=== PATIENT | female | born 1995 | race Caucasian/White ===

== ENCOUNTER 2023-03-26 21:49 | Emergency (ER) | payer MEDICAID, SELFPAY ==
[2023-03-26 21:50] VITALS: BP 114/77; PULSE 109; RESP 18; TEMP 37.9; O2SAT 96; BMI 20.2
--- NOTE | 2023-03-26 22:04 | ED_ITS ---
HPI - Back Pain/Injury General: Chief Complaint: Back Pain/Injury Stated Complaint: upper right back pain, kidney hx Time Seen by Provider: 03/26/23 22:00 History of Present Illness: 27-year-old female comes in today with complaints of right flank pain starting yesterday. Patient reports some urinary discomfort for about 1 week. Patient appears in mild discomfort. Patient appears nontoxic. Patient has a history of JABARI secondary to preeclampsia. Review of Systems General: Reports: 10 or more systems reviewed and unremarkable except in HPI and below : Reports: flank pain and difficulty voiding PFS ED PFSH: Medical History (Updated 03/26/23 @ 23:35 by DAMION Hilliard) Insect bites Social History Smoking and tobacco/nicotine status: current every day tobacco/nicotine user Female Reproductive History: Date of last menstrual period: 03/08/23 Physical Exam Const: COMMON NORMALS: alert HENMT: COMMON NORMALS: normocephalic HEAD & SCALP: normocephalic MOUTH: Normal oral and palatal mucosa present Neck/C-Spine: COMMON NORMALS: full ROM Resp: COMMON NORMALS: normal respiratory effort and clear to auscultation bilaterally AUSCULTATION: clear to auscultation bilaterally Cardio: COMMON NORMALS: regular rate and regular rhythm RATE: regular rate RHYTHM: regular rhythm GI: COMMON NORMALS: Soft to palpation PALPATION: Yes Soft to palpation : BLADDER/KIDNEY EXAM: Yes CVA tenderness on the right Back/Pelvis: GENERAL BACK: Yes CVA tenderness Extremity: COMMON NORMALS: full ROM Neuro: SENSORIUM/ORIENTATION: Yes alert Skin: COMMON NORMALS: turgor normal GENERAL SKIN EXAM: turgor normal Course Vital Signs: Vital signs: Vital Signs Temperature 100.2 F H 03/26/23 21:50 Pulse Rate 109 H 03/26/23 21:50 Respiratory Rate 16 03/26/23 22:49 Blood Pressure 114/77 03/26/23 21:50 Pulse Oximetry 100 03/26/23 22:49 Oxygen Delivery Me thod Room Air 03/26/23 21:50 MDM - Back Pain/Injury Medical Decision Making 27-year-old female comes in today for complaints of right flank pain and urinary difficulty. Patient reports symptoms started last week with flank pain starting yesterday. Patient appears nontoxic. Patient appears in mild to moderate pain. Vital signs are normal except for some mild elevation in temperature and pulse. Differential diagnosis includes gallbladder disease, pancreatitis, renal calculi, acute pyelonephritis. CBC had a elevated white blood cells of 12.6, CMP showed sodium 135 and potassium 3.4, urinalysis had a increased number of white blood cells. Believe the patient probably has urinary tract infection with some mild pyelonephritis. Patient be continued on cephalexin 500 mg 3 times a day for 7 days. Patient was given 1 g of Rocephin in the emergency department. Reviewed recommendations for follow-up or return to the ER. Patient reported understanding. Labs 03/26/23 22:38 03/26/23 22:38 Laboratory Results WBC 12.61 10^3/uL (3.29-11.43) H 03/26/23 22:38 RBC 3.79 10^6/uL (3.85-5.65) L 03/26/23 22:38 Hgb 10.50 g/dL (11.27-16.99) L 03/26/23 22:38 Hct 32.8 % (36-47) L 03/26/23 22:38 MCV 86.5 fl (85-98) 03/26/23 22:38 MCH 27.7 pg (27-33) 03/26/23 22:38 MCHC 32.0 g/dL (30-55) 03/26/23 22:38 RDW 14.7 % (12.1-15.1) 03/26/23 22:38 Plt Count 302 10^3/cmm (157-399) 03/26/23 22:38 MPV 8.1 fL (7.4-10.4) 03/26/23 22:38 Neut % (Auto) 64.5 % 03/26/23 22:38 Lymph % (Auto) 21.6 % 03/26/23 22:38 [place] % (Auto) 12.5 % 03/26/23 22:38 Eos % (Auto) 0.7 % 03/26/23 22: Baso % (Auto) 0.2 % 03/26/23 22:38 Neut # (Auto) 8.13 10^3/uL (1.8-7.7) H 03/26/23 22:38 Lymph # (Auto) 2.7 10^3/uL (0.8-4.8) 03/26/23 22:38 [place] # (Auto) 1.6 10^3/uL (0.2-0.9) H 03/26/23 22:38 Eos # (Auto) 0.1 10^3/uL (0.0-0.8) 03/26/23 22:38 Baso # (Auto) 0.0 10^3/uL (0.0-0.1) 03/26/23 22:38 Nucleated RBC % (auto) 0 % 03/26/23 22:38 Nucleated RBCs # 0.0 /100WBC 03/26/23 22:38 Sodium 135 mmol/L (136-145) L 03/26/23 22:38 Potassium 3.4 mmol/L (3.5-5.1) L 03/26/23 22:38 Chloride 100 mmol/L (98-107) 03/26/23 22:38 Carbon Dioxide 24 mmol/L (22-29) 03/26/23 22:38 Anion Gap 14.4 (5-19) 03/26/23 22:38 BUN 7 mg/dL (6-20) 03/26/23 22:38 Creatinine 0.6 mg/dL (0.5-0.9) 03/26/23 22:38 GFR Calculation 118.2 mL/min (90-130) 03/26/23 22:38 Glucose 125 mg/dL (65-115) H 03/26/23 22:38 Calculated Osmolality 279 mOsm/kg (285-295) L 03/26/23 22:38 Calcium 8.7 mg/dL (8.5-10.5) 03/26/23 22:38 Total Bilirubin 0.3 mg/dL (0.15-1.2) 03/26/23 22:38 AST 20 U/L (0-32) 03/26/23 22:38 ALT 9 U/L (0-33) 03/26/23 22:38 Alkaline Phosphatase 66 U/L (35-105) 03/26/23 22:38 Total Protein 7.2 g/dL (6.6-8.7) 03/26/23 22:38 Albumin 4.2 g/dL (3.5-5.2) 03/26/23 22:38 Globulin 3.0 g/dL (1.3-4.6) 03/26/23 22:38 HCG, Qual Negative (Negative) 03/26/23 22:36 Urine Color Yellow (Yellow) 03/26/23 22:36 Urine Appearance Clear (CLEAR) 03/26/23 22:36 Urine pH 8 (5-7) H 03/26/23 22:36 Ur Specific [place] 1.005 (1.005-1.030) 03/26/23 22:36 Urine Protein Neg (Negative) 03/26/23 22:36 Urine Glucose (UA) Norm (Normal) 03/26/23 22:36 Urine Ketones Negative (Negative) 03/26/23 22:36 Urine Blood 2+ (Negative) H 03/26/23 22:36 Urine Nitrate Negative (Negative) 03/26/23 22:36 Urine Bilirubin Neg (Negative) 03/26/23 22:36 Prot Sulfosalicylic Acd Negative (Negative) 03/26/23 22:36 Urine Urobilinogen 1 mg/dL (Negative) H 03/26/23 22:36 Ur Leukocyte Esterase Negative (Negative) 03/26/23 22:36 Urine RBC 0-4 /hpf (0-2) H 03/26/23 22:36 Urine WBC 25-40 /hpf (0-5) H 03/26/23 22:36 Ur Squamous Epith Cells 0-4 /hpf (0-5) H 03/26/23 22:36 Amorphous Sediment Not Reportable 03/26/23 22:36 Urine Bacteria 2+ /hpf (NONE) H 03/26/23 22:36 All radiology interpretation(s) finalized by discharge Discharge Plan Discharge Patient Disposition: Home Clinical Impression: Pyelonephritis Condition: Stable Prescriptions: New cephalexin 500 mg capsule 500 mg PO Q8H 7 Days Qty: 21 0RF No Action loratadine 10 mg tablet 10 mg PO DAILY PRN (Reason: itching) Qty: 30 0RF Discharge Orders: Discharge ED (Routine); Ordered 03/26/23 Ordered By: Gregorio Muhammad Referrals: Jai Cruz MD [Family Provider] - Discharge Diet: Usual diet Discharge Activity: Increase activity as tolerated Patient Instructions: Kidney Infection (ED) Activity Restrictions/Additional Instructions: Drink plenty of water and fluids. Take antibiotic as directed. Follow-up with primary care for further instructions. Return to ED for new concerns. Coding Level of Care Code ED Manager Business Banking for Chuck Apodaca
[2023-03-26 22:45] LABS: Basophils % 0.2 %; Eosinophils # 0.1 10^3/uL (0.0-0.8); Eosinophils % 0.7 %; Hematocrit 32.8 % (36-47); Lymphocytes # 2.7 10^3/uL (0.8-4.8); Lymphocytes % 21.6 %; Mean Corpuscular Hemoglobin 27.7 pg (27-33); Mean Corpuscular Volume 86.5 fl (85-98); Mean Platelet Volume 8.1 fL (7.4-10.4); Monocytes # 1.6 10^3/uL (0.2-0.9); Monocytes % 12.5 %; Neutrophils # 8.13 10^3/uL (1.8-7.7); Neutrophils % 64.5 %; Nucleated Red Blood Cells % 0 %; Platelet Count 302 10^3/cmm (157-399); Red Blood Count 3.79 10^6/uL (3.85-5.65); Red Cell Distribution Width 14.7 % (12.1-15.1); White Blood Count 12.61 10^3/uL (3.29-11.43)
[2023-03-26] MEDS: sodium chloride 0.9% 500 ML 999 ML IV (22:46)
[2023-03-26] MEDS: ketorolac 30 mg/mL INJ 15 MG IVP (22:48)
[2023-03-26 22:49] VITALS: RESP 16; O2SAT 100
[2023-03-26] MEDS: fentaNYL 50 mcg/mL INJ 2mL 25 MCG IVP (22:49)
[2023-03-26 22:54] LABS: HCG Qualitative Urine. Negative (Negative)
[2023-03-26 23:08] LABS: Alanine Aminotransferase 9 U/L (0-33); Albumin Level 4.2 g/dL (3.5-5.2); Alkaline Phosphatase 66 U/L (35-105); Anion Gap 14.4 (5-19); Aspartate Amino Transferase 20 U/L (0-32); Blood Urea Nitrogen 7 mg/dL (6-20); Calcium 8.7 mg/dL (8.5-10.5); Carbon Dioxide 24 mmol/L (22-29); Chloride 100 mmol/L (98-107); Creatinine Clr Calc Pharmacy 105.0378; Glomerular Filtration Rate 118.2 mL/min (90-130); Glucose 125 mg/dL (65-115); Osmolality Calculated 279 mOsm/kg (285-295); Potassium 3.4 mmol/L (3.5-5.1); Sodium 135 mmol/L (136-145); Total Bilirubin 0.3 mg/dL (0.15-1.2); Total Protein 7.2 g/dL (6.6-8.7)
[2023-03-26 23:32] LABS: Add Urine Microscopic? YES; Bacteria Urine 2+ /hpf; Bilirubin Urine Neg (Negative); Blood Urine 2+ (Negative); Glucose Urine UA Norm (Normal); Ketones Urine Negative (Negative); Leukocyte Esterase Urine Negative (Negative); Nitrate Urine Negative (Negative); Protein Urine Neg (Negative); RBC Urine 0-4 /hpf (0-2); Specific Gravity, Urine 1.005 (1.005-1.030); Squamous Epithelial Cell Urine 0-4 /hpf (0-5); Sulfosalicylic Acid Urine Negative (Negative); Urine Appearance Clear (CLEAR); Urine Color Yellow (Yellow); Urobilinogen Urine 1 mg/dL (Negative); WBC Urine 25-40 /hpf (0-5); pH Urine 8 (5-7)
[2023-03-26 23:33] LABS: Add Urine Culture? Yes
[2023-03-26 23:57] VITALS: PULSE 100; RESP 18; O2SAT 98
[2023-03-27 00:06] VITALS: BP 102/70; PULSE 95; O2SAT 99
== END 2023-03-27 00:07 | disposition home or self-care (01) ==
PROVIDERS: Emergency Provider Nurse Practitioner Family; Family Provider Family Medicine
DX: N12 Tubulo-interstitial nephritis, not specified as acute or chronic (principal); Z72.0 Tobacco use
CPT/HCPCS: 80053; 81001; 81025; 85025; 87077; 87086; 87186; 96365; 96375; 99284; J1885; J3010; J7040

== ENCOUNTER 2023-05-26 21:20 | Emergency (ER) | payer MEDICAID, SELFPAY ==
[2023-05-26 21:22] VITALS: BP 127/76; PULSE 121; RESP 20; TEMP 37.1; O2SAT 100; BMI 19.1
[2023-05-26 21:38] LABS: Basophils % 0.6 %; Eosinophils # 0.1 10^3/uL (0.0-0.8); Eosinophils % 2.2 %; Hematocrit 35.9 % (36-47); Lymphocytes # 2.3 10^3/uL (0.8-4.8); Lymphocytes % 36.5 %; Mean Corpuscular HGB Conc 30.1 g/dL (30-55); Mean Corpuscular Hemoglobin 26.1 pg (27-33); Mean Corpuscular Volume 86.7 fl (85-98); Mean Platelet Volume 7.9 fL (7.4-10.4); Monocytes # 0.5 10^3/uL (0.2-0.9); Monocytes % 8.7 %; Neutrophils # 3.22 10^3/uL (1.8-7.7); Neutrophils % 51.7 %; Nucleated Red Blood Cells % 0 %; Platelet Count 313 10^3/cmm (157-399); Red Blood Count 4.14 10^6/uL (3.85-5.65); White Blood Count 6.24 10^3/uL (3.29-11.43)
--- NOTE | 2023-05-26 21:42 | ED.C_ITS ---
HPI - Psych 2 General: Chief Complaint: Psychiatric Symptoms Stated Complaint: SI Time Seen by Provider: 05/26/23 21:22 Source: patient, EMS and police Mode of arrival: EMS Limitations: no limitations History of Present Illness: 28-year-old female states that she had b een drinking tonight she got into an argument with her brother he kept saying she is a full [employer] hands and she became upset she states that she grabbed a knife and stated she was going to cut herself trying to get him away from her. She states that she was never suicidal she adamantly denies being suicidal currently. Review of Systems 2 Const: Denies: fever(s), chills, body aches or change in appetite ENMT: Denies: throat pain or dental pain Card: Denies: chest pain Resp: Denies: dyspnea GI: Denies: abdominal pain, nausea, vomiting or diarrhea Musc: Denies: neck pain or back pain Skin/Breast: Denies: rash Neuro: Denies: headache(s) PFSH ED 2 PFSH: Medical History Moderate major depression Borderline personality disorder Bipolar disorder Pyelonephritis Epilepsy delivery delivered Surgical History Hx of section History of salpingectomy Family History (Updated 04/12/23 @ 13:20 by Kim Mina) Sister Autism Stroke Mother Cancer Seizure disorder Grandmother Chronic kidney disease (CKD) Diabetes mellitus type 1 Diabetes mellitus, type 2 Other Depression Diabetes Schizophrenia Social History Smoking and tobacco/nicotine status: current every day tobacco/nicotine user Alcohol intake: current Alcohol intake frequency: other Substance/Drug Use: current Substance/Drug use frequency: daily Physical Exam 2 Const: COMMON NORMALS: no acute distress, patient oriented x3 and healthy appearing HENMT: COMMON NORMALS: normocephalic and atraumatic HEAD & SCALP: n ormocephalic and atraumatic Neck/C-Spine: COMMON NORMALS: full ROM and supple Chest: COMMONS NORMALS: normal inspection of the chest Resp: COMMON NORMALS: normal respiratory effort Cardio: COMMON NORMALS: regular rhythm and No murmurs present (Cardio) R ATE: tachycardic RHYTHM: regular rhythm Extremity: COMMON NORMALS: normal to inspection and full ROM Neuro: COMMON NORMALS: patient oriented x3, moves all extremities and no focal motor deficits Psych: COMMON NORMALS: mental status grossly normal, Normal thought process present and cooperative THOUGHT PROCESS: Normal thought process present Skin: COMMON NORMALS: no rashes or lesions noted and no wounds GENERAL SKIN EXAM: no rashes or lesions noted Course 2 Vital Signs: Vital signs: Vital Signs Temperature 98.7 F 05/26/23 21: Pulse Rate 121 H 05/26/23 21:22 Respiratory Rate 20 H 05/26/23 21:22 Blood Pressure 127/76 05/26/23 21: Pulse Oximetry 100 05/26/23 21:22 MDM - Psych Medical Decision Making Patient presents here with anger outburst where she grabbed a knife and said she had herself I believe she was just trying to get her brother away from her she has no signs of SI or HI patient was evaluated by psychiatrist Dr. Maza who agrees patient is stable for discharge follow-up PCP return if worsening. Medical Records I reviewed the patient's medical records. Lab Data I reviewed the patient's lab results. 05/26/23 21:33 05/26/23 21:33 Laboratory Results WBC 6.24 10^3/uL (3.29-11.43) 05/26/23 21: RBC 4.14 10^6/uL (3.85-5.65) 05/26/23 21:33 Hgb 10.80 g/dL (11.27-16.99) L 05/26/23 21: Hct 35.9 % (36-47) L 05/26/23 21:33 MCV 86.7 fl (85-98) 05/26/23 21: MCH 26.1 pg (27-33) L 05/26/23 21: MCHC 30.1 g/dL (30-55) 05/26/23 21: RDW 15.0 % (12.1-15.1) 05/26/23 21:33 Plt Count 313 10^3/cmm (157-399) 05/26/23 21: MPV 7.9 fL (7.4-10.4) 05/26/23 21:33 Neut % (Auto) 51.7 % 05/26/23 21:33 Lymph % (Auto) 36.5 % 05/26/23 21:33 [place] % (Auto) 8.7 % 05/26/23 21:33 Eos % (Auto) 2.2 % 05/26/23 21:33 Baso % (Auto) 0.6 % 05/26/23 21:33 Neut # (Auto) 3.22 10^3/uL (1.8-7.7) 05/26/23 21: Lymph # (Auto) 2.3 10^3/uL (0.8-4.8) 05/26/23 21:33 [place] # (Auto) 0.5 10^3/uL (0.2-0.9) 05/26/23 21: Eos # (Auto) 0.1 10^3/uL (0.0-0.8) 05/26/23 21: Baso # (Auto) 0.0 10^3/uL (0.0-0.1) 05/26/23 21: Nucleated RBC % (auto) 0 % 05/26/23 21: Nucleated RBCs # 0.0 /100WBC 05/26/23 21:33 Sodium 141 mmol/L (136-145) 05/26/23 21:33 Potassium 3.9 mmol/L (3.5-5.1) 05/26/23 21: Chloride 107 mmol/L (98-107) 05/26/23 21: Carbon Dioxide 20 mmol/L (22-29) L 05/26/23 21:33 Anion Gap 17.9 (5-19) 05/26/23 21:33 BUN 6 mg/dL (6-20) 05/26/23 21:33 Creatinine 0.7 mg/dL (0.5-0.9) 05/26/23 21:33 GFR Calculation 98.3 mL/min (90-130) 05/26/23 21:33 Glucose 135 mg/dL (65-115) H 05/26/23 21:33 Calculated Osmolality 292 mOsm/kg (285-295) 05/26/23 21:33 Calcium 9.3 mg/dL (8.5-10.5) 05/26/23 21:33 Total Bilirubin 0.2 mg/dL (0.15-1.2) 05/26/23 21:33 AST 21 U/L (0-32) 05/26/23 21:33 ALT 14 U/L (0-33) 05/26/23 21:33 Alkaline Phosphatase 61 U/L (35-105) 05/26/23 21:33 Total Protein 7.2 g/dL (6.6-8.7) 05/26/23 21:33 Albumin 4.6 g/dL (3.5-5.2) 05/26/23 21:33 Globulin 2.6 g/dL (1.3-4.6) 05/26/23 21:33 Salicylates < 0.3 mg/dL (3-10) L 05/26/23 21:33 Acetaminophen < 5.0 ug/mL (10-30) L 05/26/23 21:33 Ethyl Alcohol 140 mg/dL (0-10) H 05/26/23 21:33 No radiology studies performed this visit Discharge Plan Discharge Patient Disposition: Home Clinical Impression: Behavior problems Condition: Stable Prescriptions: No Action ciprofloxacin HCl 500 mg tablet 500 mg PO BID 7 Days Qty: 14 0RF Discharge Orders: Discharge ED (Routine); Ordered 05/26/23 Ordered By: Tameka Boudreaux Discharge Diet: Advance as tolerated Discharge Activity: Resume usual activity Patient Instructions: Depression (ED) Coding Level of Care Code ED Forming Yardage Control Operator for Chuck Apodaca
[2023-05-26 21:57] LABS: Alanine Aminotransferase 14 U/L (0-33); Albumin Level 4.6 g/dL (3.5-5.2); Alcohol Level 140 mg/dL (0-10); Alkaline Phosphatase 61 U/L (35-105); Anion Gap 17.9 (5-19); Aspartate Amino Transferase 21 U/L (0-32); Blood Urea Nitrogen 6 mg/dL (6-20); Calcium 9.3 mg/dL (8.5-10.5); Carbon Dioxide 20 mmol/L (22-29); Chloride 107 mmol/L (98-107); Globulin 2.6 g/dL (1.3-4.6); Glomerular Filtration Rate 98.3 mL/min (90-130); Glucose 135 mg/dL (65-115); Osmolality Calculated 292 mOsm/kg (285-295); Potassium 3.9 mmol/L (3.5-5.1); Sodium 141 mmol/L (136-145); Total Bilirubin 0.2 mg/dL (0.15-1.2); Total Protein 7.2 g/dL (6.6-8.7)
[2023-05-26 22:00] LABS: Acetaminophen < 5.0 ug/mL (10-30); Salicylate < 0.3 mg/dL (3-10)
--- NOTE | 2023-05-26 22:59 | PC.NURSE ---
after speaking with psychologist patient discharged home. Pt. continues to deny SI/HI
== END 2023-05-26 23:02 | disposition home or self-care (01) ==
PROVIDERS: Emergency Provider Emergency Medicine
DX: R46.89 Other symptoms and signs involving appearance and behavior (principal); Z72.0 Tobacco use
CPT/HCPCS: 36415; 80053; 80307; 85025; 99283

== ENCOUNTER 2023-07-19 23:28 | Emergency (ER) | payer MEDICAID, SELFPAY ==
[2023-07-19 23:35] VITALS: BP 140/87; PULSE 76; RESP 16; TEMP 36.6; O2SAT 99; BMI 20.4
--- NOTE | 2023-07-19 23:39 | W.ED.ABDPA2 ---
HPI - Abdominal Pain General: Chief Complaint: Abdominal Pain Stated Complaint: back pain, believes uti Time Seen by Provider: 07/19/23 23:33 History of Present Illness: 28-year-old female presents to the emergency department complaints of right flank and right lower quadrant abdominal pain for the previous 1 month. She states she has a history of recurrent urinary tract infections and is concerned that this may be another urinary tract infection. She states she has had a bilateral salpingo-oophorectomy in the past. She also states she has had acute renal failure secondary to preeclampsia with her last child. She states she does not have a primary care provider. She states she did have an episode of nausea and vomiting earlier today. She states her pain currently is a sharp constant stabbing pain that is a 10 out of 10. She states that nothing seems to make it better nothing makes it worse. She denies fever chills or night sweats. She denies gross hematuria. Associated Symptoms: Reports nausea and vomiting Review of Systems General: Reports: 10 or more systems reviewed and unremarkable except in HPI and below GI: Reports: abdominal pain, nausea and vomiting Musc: Reports: other (Right flank pain) [facility] ED PFSH: Medical History Moderate major depression Borderline personality disorder Bipolar disorder Pyelonephritis Epilepsy delivery delivered Surgical History Hx of section History of salpingectomy Family History (Updated 04/12/23 @ 13:20 by Kim Mina) Sister Autism Stroke Mother Cancer Seizure disorder Grandmother Chronic kidney disease (CKD) Diabetes mellitus type 1 Diabetes mellitus, type 2 Other Depression Diabetes Schizophrenia Social History Smoking and tobacco/nicotine status: current every day tobacco/nicotine user Alcohol intake: current Alcohol intake frequency: other Substance/Drug Use: current Substance/Drug use frequency: daily Physical Exam Narrative: EXAM NARRATIVE: Constitutional: the patient appears well nourished and of normal development. Vital signs as documented. No acute distress at present. Alert and oriented-to person, place, time and situation. Head, eyes, ears, nose, mouth, throat: Normocephalic, atraumatic. Pupils-equal, round, reactive to light. No scleral icterus. Normal-appearing external ears. Normal appearing nasal turbinates, no drainage. Neck: Supple, trachea is midline, no lymphadenopathy, no jugular venous distension. No meningeal signs. Lungs: clear to auscultation to all lung [place]. Symmetrical rise and fall of chest, no obvious signs of increased work of breathing at present. Cardiac: Regular rate and rhythm, positive S1, S2. No murmurs, rubs or gallops that I can appreciate Abdomen: Soft, non-tender to palpation, normal active bowel sounds to all quadrants. No palpable masses, no organomegaly and abdominal bruits. Back: Positive right CVA tenderness, normal alignment, no palpable step-offs no obvious deformity. Extremities: 2+ pulses in the upper extremities that are equal bilaterally, 2+ pulses in the lower extremities that are equal bilaterally. Non-edematous. Moves all extremities well, sensation to all extremities are noted. Skin: Warm, dry, intact. Course Vital Signs: Vital signs: Vital Signs Temperature 97.9 F 07/19/23 23:35 Pulse Rate 67 07/20/23 01:00 Respiratory Rate 16 07/20/23 01:00 Blood Pressure 98/53 07/20/23 01:00 Pulse Oximetry 100 07/20/23 01:00 MDM - Abdominal Pain Medical Decision Making Physical exam completed document I will obtain CBC and CMP as well as urinalysis to evaluate for urinary tract infection, pyelonephritis, renal calculi. Medical Records I reviewed the patient's medical records. Lab Data I reviewed the patient's lab results. 07/19/23 23:36 07/19/23 23:36 Labs/Radiology: Radiology Impressions Abdomen/Pelvis CT 07/20/23 00:09 IMPRESSION: 1. Prominent fluid in the small bowel without dilation may reflect an enteritis. 2. Left ovary 18 mm cyst, likely follicular. 3. Small amount of nonspecific fluid in the pelvis. 4. Small umbilical hernia. 5. Fluid in the uterine cavity likely related to menstrual status. Laboratory Results WBC 6.82 10^3/uL (3.29-11.43) 07/19/23 23:36 RBC 4.45 10^6/uL (3.85-5.65) 07/19/23 23:36 Hgb 11.00 g/dL (11.27-16.99) L 07/19/23 23:36 Hct 36.8 % (36-47) 07/19/23 23:36 MCV 82.7 fl (85-98) L 07/19/23 23:36 MCH 24.7 pg (27-33) L 07/19/23 23:36 MCHC 29.9 g/dL (30-55) L 07/19/23 23:36 RDW 14.7 % (12.1-15.1) 07/19/23 23:36 Plt Count 350 10^3/cmm (157-399) 07/19/23 23:36 MPV 8.1 fL (7.4-10.4) 07/19/23 23:36 Neut % (Auto) 52.4 % 07/19/23 23:36 Lymph % (Auto) 34.9 % 07/19/23 23:36 [place] % (Auto) 7.9 % 07/19/23 23:36 Eos % (Auto) 3.8 % 07/19/23 23:36 Baso % (Auto) 0.9 % 07/19/23 23:36 Neut # (Auto) 3.57 10^3/uL (1.8-7.7) 07/19/23 23:36 Lymph # (Auto) 2.4 10^3/uL (0.8-4.8) 07/19/23 23:36 [place] # (Auto) 0.5 10^3/uL (0.2-0.9) 07/19/23 23:36 Eos # (Auto) 0.3 10^3/uL (0.0-0.8) 07/19/23 23:36 Baso # (Auto) 0.1 10^3/uL (0.0-0.1) 07/19/23 23:36 Nucleated RBC % (auto) 0 % 07/19/23:36 Nucleated RBCs # 0.0 /100WBC 07/19/23 23:36 Sodium 139 mmol/L (136-145) 07/19/23 23:36 Potassium 4.2 mmol/L (3.5-5.1) 07/19/23 23:36 Chloride 102 mmol/L (98-107) 07/19/23 23:36 Carbon Dioxide 26 mmol/L (22-29) 07/19/23 23:36 Anion Gap 15.2 (5-19) 07/19/23 23:36 BUN 6 mg/dL (6-20) 07/19/23 23:36 Creatinine 0.9 mg/dL (0.5-0.9) 07/19/23 23:36 GFR Calculation 73.5 mL/min (90-130) L 07/19/23 23:36 Glucose 101 mg/dL (65-115) 07/19/23 23:36 Calculated Osmolality 286 mOsm/kg (285-295) 07/19/23 23:36 Calcium 9.1 mg/dL (8.5-10.5) 07/19/23 23:36 Total Bilirubin 0.4 mg/dL (0.15-1.2) 07/19/23 23:36 AST 21 U/L (0-32) 07/19/23 23:36 ALT 12 U/L (0-33) 07/19/23 23:36 Alkaline Phosphatase 61 U/L (35-105) 07/19/23 23:36 Total Protein 7.8 g/dL (6.6-8.7) 07/19/23 23:36 Albumin 4.8 g/dL (3.5-5.2) 07/19/23 23:36 Globulin 3.0 g/dL (1.3-4.6) 07/19/23 23:36 HCG, Qual Negative (Negative) 07/19/23 23:36 Urine Color Yellow (Yellow) 07/19/23 23:36 Urine Appearance Sl hazy (CLEAR) A 07/19/23 23:36 Urine pH 8 (5-7) H 07/19/23 23:36 Ur Specific [place] 1.010 (1.005-1.030) 07/19/23 23:36 Urine Protein Neg (Negative) 07/19/23 23:36 Urine Glucose (UA) Norm (Normal) 07/19/23 23:36 Urine Ketones Negative (Negative) 07/19/23 23:36 Urine Blood Neg (Negative) 07/19/23 23:36 Urine Nitrate Negative (Negative) 07/19/23 23:36 Urine Bilirubin Neg (Negative) 07/19/23 23:36 Prot Sulfosalicylic Acd Negative (Negative) 07/19/23 23:36 Urine Urobilinogen Neg mg/dL (Negative) 07/19/23 23:36 Ur Leukocyte Esterase Trace (Negative) H 07/19/23 23:36 Urine RBC None /hpf (0-2) 07/19/23 23:36 Urine WBC 0-4 /hpf (0-5) H 07/19/23 23:36 Ur Squamous Epith Cells 0-4 /hpf (0-5) H 07/19/23 23:36 Amorphous Sediment Not Reportable 07/19/23 23:36 Urine Bacteria None /hpf (NONE) 07/19/23 23:36 All radiology interpretation(s) finalized by discharge Discharge Plan Discharge Patient Disposition: Home Clinical Impression: Abdominal wall pain in right flank UTI (urinary tract infection) Qualifiers: Urinary tract infection type: acute cystitis Hematuria presence: without hematuria Qualified Code(s): N30.00 - Acute cystitis without hematuria Condition: Stable Prescriptions: New Macrobid 100 mg capsule 100 mg PO Q12H 7 Days Qty: 14 0RF Rx Instructions: must administer with a meal/food ibuprofen 800 mg tablet 800 mg PO TID PRN (Reason: pain) Qty: 30 0RF No Action ciprofloxacin HCl 500 mg tablet 500 mg PO BID 7 Days Qty: 14 0RF Discharge Orders: Discharge ED (Routine); Ordered 07/20/23 Ordered By: Mark Leon Discharge Diet: Usual diet Discharge Activity: Resume usual activity Patient Instructions: Abdominal Pain (ED), Opioid Safety, Pain Management Activity Restrictions/Additional Instructions: Activity Restrictions/Additional Instructions: Thank you for choosing [facility] for your healthcare needs today. Please realize that you were seen in the Emergency Department and that we are providing you with an emergency medical screening exam and this may not be a complete and all inclusive of all the testing and or medical work-up that you may need to determine your ailment or severity of your illness. It is very important that you follow-up as instructed with your Primary care provider or Specialist for additional evaluation and to discuss your medical treatment plan. You may return to the Emergency Department should you have concerns or if your condition changes or worsens in any way. Coding Level of Care Code ED Tacking Machine Operator for Chuck Apodaca
[2023-07-19 23:42] VITALS: BP 106/71; PULSE 80; O2SAT 100
[2023-07-19] MEDS: ondansetron 2 mg/ML SDV 2 mL 4 MG IVP (23:47)
[2023-07-19] MEDS: ketorolac 30 mg/mL INJ IVP (23:47)
[2023-07-19 23:50] LABS: Basophils # 0.1 10^3/uL (0.0-0.1); Basophils % 0.9 %; Eosinophils # 0.3 10^3/uL (0.0-0.8); Eosinophils % 3.8 %; Hematocrit 36.8 % (36-47); Lymphocytes # 2.4 10^3/uL (0.8-4.8); Lymphocytes % 34.9 %; Mean Corpuscular HGB Conc 29.9 g/dL (30-55); Mean Corpuscular Hemoglobin 24.7 pg (27-33); Mean Corpuscular Volume 82.7 fl (85-98); Mean Platelet Volume 8.1 fL (7.4-10.4); Monocytes # 0.5 10^3/uL (0.2-0.9); Monocytes % 7.9 %; Neutrophils # 3.57 10^3/uL (1.8-7.7); Neutrophils % 52.4 %; Nucleated Red Blood Cells % 0 %; Platelet Count 350 10^3/cmm (157-399); Red Blood Count 4.45 10^6/uL (3.85-5.65); Red Cell Distribution Width 14.7 % (12.1-15.1); White Blood Count 6.82 10^3/uL (3.29-11.43)
[2023-07-20 00:04] LABS: Add Urine Microscopic? YES; Bilirubin Urine Neg (Negative); Blood Urine Neg (Negative); Glucose Urine UA Norm (Normal); Ketones Urine Negative (Negative); Leukocyte Esterase Urine Trace (Negative); Nitrate Urine Negative (Negative); Protein Urine Neg (Negative); Sulfosalicylic Acid Urine Negative (Negative); Urine Appearance SL Hazy (CLEAR); Urine Color Yellow (Yellow); Urobilinogen Urine Neg (Negative); pH Urine 8 (5-7)
[2023-07-20 00:05] LABS: Add Urine Culture? No; Squamous Epithelial Cell Urine 0-4 /hpf (0-5); WBC Urine 0-4 /hpf (0-5)
[2023-07-20 00:07] LABS: HCG Qualitative Urine. Negative (Negative)
[2023-07-20 00:08] VITALS: PULSE 78; O2SAT 99
--- NOTE | 2023-07-20 00:09 | CTR_ITS ---
PROCEDURE INFORMATION: Exam: CT Abdomen And Pelvis With Contrast Exam date and time: 07/20/2023 12:34 AM Age: 28 years old Clinical indication: Abdominal pain; Localized; Right upper quadrant (ruq); Prior surgery; Surgery date: 6+ months; Surgery type: Cestion/tubal; Additional info: Right flank pain TECHNIQUE: Imaging protocol: Computed tomography of the abdomen and pelvis with contrast. Radiation optimization: All CT scans at this facility use at least one of these dose optimization techniques: automated exposure control; mA and/or kV adjustment per patient size (includes targeted exams where dose is matched to clinical indication); or iterative reconstruction. Contrast material: OMNI 350; Contrast volume: 100 ml; Contrast route: INTRAVENOUS (IV); COMPARISON: [place] [id number] 07/29/2016 9:53 AM RADIATION DOSE METRICS: Total DLP (mGy-cm): 320.1 FINDINGS: Liver: Normal. No mass. Gallbladder and bile ducts: Normal. No calcified stones. No ductal dilation. Pancreas: Normal. No ductal dilation. Spleen: Normal. No splenomegaly. Adrenal glands: Normal. No mass. Kidneys and ureters: Normal. No hydronephrosis. Stomach and bowel: Prominent fluid in the small bowel without dilation may reflect an enteritis. Appendix: No evidence of appendicitis. Intraperitoneal space: Small amount of nonspecific fluid in the pelvis. Vasculature: Unremarkable. No abdominal aortic aneurysm. Lymph nodes: Unremarkable. No enlarged lymph nodes. Urinary bladder: Unremarkable as visualized. Reproductive: Fluid in the uterine cavity likely related to menstrual status. Left ovary 18 mm cyst, likely follicular. Bones/joints: Unremarkable. No acute fracture. Soft tissues: Small umbilical hernia. Other findings: Small amount of nonspecific fluid in the pelvis. CT/CT abdomen pelvis w con* [id number] IMPRESSION: 1. Prominent fluid in the small bowel without dilation may reflect an enteritis. 2. Left ovary 18 mm cyst, likely follicular. 3. Small amount of nonspecific fluid in the pelvis. 4. Small umbilical hernia. 5. Fluid in the uterine cavity likely related to menstrual status.
[2023-07-20 00:12] LABS: Alanine Aminotransferase 12 U/L (0-33); Albumin Level 4.8 g/dL (3.5-5.2); Alkaline Phosphatase 61 U/L (35-105); Anion Gap 15.2 (5-19); Aspartate Amino Transferase 21 U/L (0-32); Blood Urea Nitrogen 6 mg/dL (6-20); Calcium 9.1 mg/dL (8.5-10.5); Carbon Dioxide 26 mmol/L (22-29); Chloride 102 mmol/L (98-107); Glomerular Filtration Rate 73.5 mL/min (90-130); Glucose 101 mg/dL (65-115); Osmolality Calculated 286 mOsm/kg (285-295); Potassium 4.2 mmol/L (3.5-5.1); Sodium 139 mmol/L (136-145); Total Bilirubin 0.4 mg/dL (0.15-1.2); Total Protein 7.8 g/dL (6.6-8.7)
[2023-07-20 00:38] VITALS: PULSE 77; O2SAT 99
[2023-07-20] MEDS: iohexol 350 mg/mL 500 mL Btl (per mL) IV (00:39)
[2023-07-20 01:00] VITALS: BP 98/53; PULSE 67; RESP 16; O2SAT 100
[2023-07-20] MEDS: nitrofurantoin SR (BID) 100 mg Capsule PO (01:10)
[2023-07-20 01:18] VITALS: BP 107/72; PULSE 81; RESP 14; O2SAT 96
== END 2023-07-20 01:22 | disposition home or self-care (01) ==
PROVIDERS: Emergency Provider Internal Medicine
DX: N30.00 Acute cystitis without hematuria (principal); Z72.0 Tobacco use
CPT/HCPCS: 74177; 80053; 81001; 81003; 81025; 85025; 96374; 96375; 99285; J1885; J2405; Q9967